=== PATIENT | male | born 1970 | race Caucasian/White ===

== ENCOUNTER → 2017-05-24 | Outpatient (CLI) | payer OTHER ==
[~2017-05-24] MED LIST: ATORVASTATIN CA10 M1 PO; FLEXERIL10 MG PO; LISINOPRIL20 MG PO; LISINOPRIL40 MG PO; NORCO1 TAB PO; VIAGRA100 MG PO
--- NOTE | 2017-05-25 15:09 | RADIOLOGY REPORT PS360 ---
SPECT MYOCARDIAL PERFUSION SCAN, REST AND STRESS: EXERCISE STRESS: [facility] REVIEW QGS EF AND WALL MOTION EVALUATION: QPS - PERFUSION EVALUATION: HISTORY: Chest pain, HTN, CAD PROCEDURE: Rest imaging performed after administration of10.51 millicuries Tc MIBI. Dose administered at6:20 a.m., with imaging thereafter. Stress imaging was then performed following9 minutes of exercise stress. The patient achieved a heart [id number] with projected heart rate of148 . Resting BP149/90 with stress 180/85. At maximum exercise stress,31.1 millicuries Tc MIBI administered at7:30 a.m. with [id number] minutes thereafter. FINDINGS: Perfusion Evaluation: The single slice spect images as well as the [facility] bull's-eye data summary were reviewed. There is decrease activity within the inferior wall the stress images which becomes normal on the rest images consistent with inferior wall ischemia. Wall Motion and Ejection Fraction Evaluation: Gated SPECT review and analysis used to evaluate these features. There is a 49 % left ventricular ejection fraction. There is mild global hypokinesia. IMPRESSION: 1. Slightly low ejection fraction of 49%. 2. Decrease activity in the inferior wall on the stress images which becomes normal on the rest images consistent with ischemic changes of the anterior wall
--- NOTE | 2017-05-25 15:09 | RADIOLOGY REPORT PS360 ---
SPECT MYOCARDIAL PERFUSION SCAN, REST AND STRESS: EXERCISE STRESS: [facility] REVIEW QGS EF AND WALL MOTION EVALUATION: QPS - PERFUSION EVALUATION: HISTORY: Chest pain, HTN, CAD PROCEDURE: Rest imaging performed after administration of10.51 millicuries Tc MIBI. Dose administered at6:20 a.m., with imaging thereafter. Stress imaging was then performed following9 minutes of exercise stress. The patient achieved a heart [id number] with projected heart rate of148 . Resting BP149/90 with stress 180/85. At maximum exercise stress,31.1 millicuries Tc MIBI administered at7:30 a.m. with [id number] minutes thereafter. FINDINGS: Perfusion Evaluation: The single slice spect images as well as the [facility] bull's-eye data summary were reviewed. There is decrease activity within the inferior wall the stress images which becomes normal on the rest images consistent with inferior wall ischemia. Wall Motion and Ejection Fraction Evaluation: Gated SPECT review and analysis used to evaluate these features. There is a 49 % left ventricular ejection fraction. There is mild global hypokinesia. IMPRESSION: 1. Slightly low ejection fraction of 49%. 2. Decrease activity in the inferior wall on the stress images which becomes normal on the rest images consistent with ischemic changes of the anterior wall
== END ==
LOC: RAD 06:00
DX: R07.9 Chest pain, unspecified (principal); I25.10 Atherosclerotic heart disease of native coronary artery without angina pectoris
CPT/HCPCS: A9502